=== PATIENT | male | born 1995 | race Caucasian/White ===

== ENCOUNTER 2025-05-03 00:07 | Emergency (ER) | payer BC ==
[~2025-05-03] VITALS: Ht 175.3 cm; Wt 86.6 kg
[2025-05-03] MEDS: CLINDAMYCIN 150 MG CAPSULE PO ONE (06:18)
[2025-05-03] MEDS: LIDOCAINE 1% MDV 20 ML VIAL IM ONE (06:23)
[2025-05-03] MEDS: KETOROLAC 60 MG/2 ML VIAL IM ONE (06:46)
[2025-05-03 07:00] VITALS: BP 136/92; TEMP 99.1; O2SAT 96
== END 2025-05-03 07:51 | disposition home or self-care (01) ==
LOC: M ED 00:07
DX: L02.511 Cutaneous abscess of right hand (principal)
CPT/HCPCS: 10060; 87070; 87205; 96372; 99284; J1885